=== PATIENT | female | born 1975 ===

== ENCOUNTER 2024-06-12 18:55 | Observation (INO) | payer OTHER ==
[~2024-06-12] VITALS: Ht 170.2 cm; Wt 91.9 kg
--- NOTE | 2024-06-12 19:35 | NUR ---
FEMALE PATIENT ARRIVED TO ROOM 353 FROM [place] A DIRECT ADMITT FOR DR. BARRIGA. PATIENT ASSISTED TO BED WITH STAND BY ASSIST. GAIT STEADY. VITAL SIGNS TAKEN. PATIENT C/O PAIN. PRIMARY NURSE NOTIFIED BY MAYURI. PATIENT VERBALIZED UNDERSTANDING OF BED CONTROLS AND CALL LIGHT.
[2024-06-12 20:00] VITALS: BP 152/86; PULSE 84; TEMP 100.2
--- NOTE | 2024-06-12 20:51 | NUR ---
DR. BARRIGA CALLED FOR ADMISSION ORDERS AT THIS TIME. TELEPHONE ORDERS RECIEVED.
[2024-06-12] MEDS ORDERED: NS 1,000 ML IV SCH (21:30)
[2024-06-12] MEDS ORDERED: HYDROmorphone 0.5 MG/0.5 ML SYRINGE IV PRN (21:30)
[2024-06-12] MEDS ORDERED: Acetaminophen 325 MG TAB PO PRN (21:30)
[2024-06-12] MEDS ORDERED: Ondansetron 4 MG/2 ML VIAL IV PRN (21:30)
[2024-06-12 22:06] VITALS: BP_SYST 152
--- NOTE | 2024-06-12 22:06 | NUR ---
PATIENT RESTING IN BED WITH TV ON WITH FAMILY AT BEDSIDE WITH NO ACUTE DISTRESS NOTED. PATIENT ON ROOM AIR. INITAL INTAKE AND INTIAL ASSESSMENT COMPLETED AT THIS TIME. PATIENT TOLERATED WELL. PATIENT C/O PAIN. IV DILAUDID GIVEN PER MD ORDER. PATIENT STATES PAIN LEVEL IS 10/10 ON PAIN SCALE. NS STARTED. PATIENT GIVEN BROTH, JELLO, AND PITCHER OF ICE WATER. PATIENT VERBALIZED UNDERSTANDING OF BEING NPO AFTER MIDNIGHT. PATIENT DENIES ANY NAUSEA AT THIS TIME. PATIENT VERBALIZED UDNERSTANDING OF CALL LIGHT AND BED CONTROLS. PATIENT DENIES ANY OTHER NEEDS AT THIS TIME. BED IN LOW POSITION WITH WHEELS LOCKED WITH RAILS UP X2 AND CALL LIGHT WITHIN REACH.
[2024-06-13] VITALS (12 sets, daily range): BP systolic 106–154; BP diastolic 62–88; PULSE 85–90; TEMP 98.4–99.7
[2024-06-13] MEDS ORDERED: PROAIR HFA0.09 MG/AC IH (00:46)
[2024-06-13] MEDS ORDERED: PRINZIDE 12.5 M1 TA1 PO (00:48)
[2024-06-13] MEDS ORDERED: SYNTHROID0.1 MG/TAB PO (00:49)
[2024-06-13] MEDS ORDERED: WOMEN'S DAILY F1 TAB PO (00:54)
[2024-06-13] MEDS ORDERED: CALCIUM 600MG+D1 TAB PO (00:55)
[2024-06-13] MEDS ORDERED: VITAMIN D31000 IU PO (00:55)
[2024-06-13] MEDS ORDERED: VITAMIN B COMPL1 SGL PO (00:56)
[2024-06-13] MEDS ORDERED: NATURAL POTASS595 MG RC (00:59)
--- NOTE | 2024-06-13 07:44 | NUR ---
PATIENT ALERT AND ORIENTED X4. REPORTS PAIN OF 8/10 TO EPIGASTRIC AREA. REPORTS SOME SOA WHILE RESTING. FACE IS RED AND HAVING MILD TEMPERATURE. PATIENT FAMILY AT BEDSIDE. SOME MILD NAUSEA REPORTED. DENIES ANY OTHER CONCERN AT THIS TIME. CALL LIGHT WITHIN REACH.BED AT LOWEST POSITION.
[2024-06-13 08:40] LABS: HEMATOCRIT 40.1 % (37.0-47.0); HEMOGLOBIN 13.9 g/dl (12.5-16.0); MEAN CELL VOLUME 101 fl (80.0-100.0); MEAN CORPUSCULAR HEMOGLOBIN 35 pg (27-31); MEAN CORPUSCULAR HGB CONC 35 g/dl (33.0-37.0); MEAN PLATELET VOLUME 10.9 fl (7.4-10.4); PLATELET COUNT 210 K/mm3 (130-400); RED BLOOD COUNT 3.99 M/mm3 (4.10-5.30); REDCELL DISTRIBUTION WIDTH-CV 12.1 % (11.5-14.5)
[2024-06-13 08:55] LABS: ALBUMIN 3.6 g/dL (3.5-5.0); BILIRUBIN,TOTAL 1.1 mg/dL (0.2-1.2); CALCIUM 9.5 mg/dL (8.4-10.2); CREATININE, serum 0.61 mg/dL (0.57-1.11); POTASSIUM 3.6 mEq/L (3.5-4.5); TOTAL PROTEIN 6.8 g/dl (6.2-8.1)
[2024-06-13] MEDS ORDERED: Scopolamine 1 MG Delivered 3-Day PATCH TD SCH (09:00)
--- NOTE | 2024-06-13 09:14 | NUR ---
PATIENT CRITICAL LAB VALUE REPORTED TO DR. BARRIGA. NO NEW ORDERS AT THIS TIME.
[2024-06-13] MEDS ORDERED: LR 1,000 ML IV SCH (10:00)
[2024-06-13] MEDS ORDERED: Meclizine 25 MG TAB PO SCH (10:00)
[2024-06-13 10:35] LABS: BAND 3 % (0-10); LYMPHOCYTE 6 % (20.0-51.0); PLATELET ESTIMATE NORMAL (NORMAL)
[2024-06-13 10:36] LABS: NEUTROPHILS 82 % (42.0-75.2)
[2024-06-13] MEDS ORDERED: Albuterol 0.083% Neb Soln 2.5 MG/3 ML UD IH PRN (11:15)
--- NOTE | 2024-06-13 11:53 | NUR ---
SW met with pt to discuss intake assessment. She reports to live alone in [place]. She sees Dr. Enriquez for PCP needs and obtains medications from [facility] pharmacy with no difficulties. She verified to have [employer] and [employer] insurance. Pt is independent with [employer] and utilizes no DME. Pt does not have a DPOA-HC and reports Angel is her partner [phone]. She is agreeable to her daughter, Lyn Serrano [phone] as NOK. No further needs. Discharge Plan: home
[2024-06-13] MEDS ORDERED: Indocyanine Green 12.5 MG in Water For Injection,Sterile 2.5 ML IV ONE (13:00)
--- NOTE | 2024-06-13 13:14 | NUR ---
D: Personal Financial Advisor stopped by room on rounds. A: Pt was resting and content with her aunt in the room. Pt has no needs right now. P: Personal Financial Advisor informed pt that if she needed anything from the can tender area to let her nurse know. Personal Financial Advisor will follow up as needed.
[2024-06-13] MEDS ORDERED: fentaNYL 50 MCG/ML 5 ML VIAL ONE (13:17)
[2024-06-13] MEDS ORDERED: Rocuronium 50 MG/5 ML Multi-Dose VIAL ONE (13:17)
[2024-06-13] MEDS ORDERED: dexAMETHasone 10 MG/ML VIAL ONE (14:03)
[2024-06-13] MEDS ORDERED: Ondansetron 4 MG/2 ML VIAL ONE (14:03)
[2024-06-13] MEDS ORDERED: Ketorolac 30 MG/ML VIAL ONE (14:04)
[2024-06-13] MEDS ORDERED: Meperidine 50 MG/ML 1 ML VIAL IV PRN (14:15)
[2024-06-13] MEDS ORDERED: droPERidol 2.5 MG/ML 2 ML VIAL IV PRN (14:15)
[2024-06-13] MEDS ORDERED: HYDROmorphone 1 MG/1 ML SYRINGE [PACU/SDC ONLY] IV PRN (14:15)
[2024-06-13] MEDS ORDERED: Morphine 2 MG/1 ML VIAL [PACU/SDC ONLY] IV PRN (14:15)
[2024-06-13] MEDS ORDERED: Ondansetron 4 MG/2 ML VIAL IV PRN (14:15)
[2024-06-13] MEDS ORDERED: fentaNYL 50 MCG/ML 1 ML SYRINGE/VIAL [PACU/SDC ONLY] IV PRN (14:15)
[2024-06-13] MEDS ORDERED: Glycopyrrolate 0.2 MG/ML 1 ML VIAL ONE (15:31)
[2024-06-13] MEDS ORDERED: MOTRIN 600600 MG/TAB PO (16:14)
[2024-06-13] MEDS ORDERED: NORCO 325 MG-51 TAB PO (16:14)
[2024-06-13] MEDS ORDERED: AMOXICILLIN 8751 TAB PO (16:22)
[2024-06-13] MEDS ORDERED: Amoxicillin/Clavulanate K+ 875/125 MG TAB PO SCH (17:00)
--- NOTE | 2024-06-13 17:20 | NUR ---
patient able to urinate without difficulty, no nausea and no pain just some mild discomfort. incisions in abd d/c/i. patient able to eat without nausea. call light within reach. bed at lowest position.
--- NOTE | 2024-06-13 18:52 | NUR ---
PATIENT DISCHARGE INSTRUCTIONS GIVEN. PATIENT VERBALIZED UNDERSTANDING. PATIENT IV REMOVED. PATIENT ESCORTED OUT OF UNIT BY SARAH LANDEROS.
== END 2024-06-13 18:15 | disposition home or self-care (01) ==
LOC: MEDICAL 18:55 → ICU 20:27 → MEDICAL 21:07 → ICU 21:07 → MEDICAL 06-13 02:31
PROVIDERS: ADMIT Surgery
DX: K80.12 Calculus of gallbladder with acute and chronic cholecystitis without obstruction (principal); F17.210 Nicotine dependence, cigarettes, uncomplicated
CPT/HCPCS: G0378; G0379; J0690; J1100; J1171; J1885; J2405; J2543; J2704; J3010; J7030